=== PATIENT | female | born 2000 | race African-American/Black ===

== ENCOUNTER 2021-04-24 04:26 | Emergency (ER) | payer BC ==
[~2021-04-24] VITALS: Ht 167.6 cm; Wt 66.0 kg
[2021-04-24 04:59] LABS: BASOPHILS % 0.5 % (0.0-2.0); EOSINOPHILS % 1.1 % (0.0-5.0); HEMATOCRIT. 38.5 % (36.0-48.0); HEMOGLOBIN. 12.9 g/dL (12.0-16.0); LYMPHOCYTES % 35.4 % (20.0-50.0); MEAN CORPUSCULAR HEMOGLOBIN 28.5 pg (28.0-32.0); MEAN CORPUSCULAR VOLUME 84.7 fL (81.0-99.0); MEAN PLATELET VOLUME 8.8 fl (7.4-10.4); PLATELET 206 x1000/uL (130-400); RED BLOOD CELL COUNT 4.55 mill/uL (4.2-5.4); RED CELL DISTRIBUTION WIDTH 14.7 % (11.6-14.6)
[2021-04-24 05:03] LABS: CHLORIDE 110 mEq/L (98-107)
[2021-04-24 05:05] LABS: HCG SCREEN NEGATIVE
[2021-04-24 05:32] LABS: CLARITY URINE CLEAR (CLEAR); COLOR URINE YELLOW (YELLOW); KETONES URINE TRACE (NEGATIVE); LEUKOCYTE ESTERASE URINE TRACE (NEGATIVE); NITRITE URINE NEGATIVE (NEGATIVE); OCCULT BLOOD URINE 2+ (NEGATIVE); PROTEIN URINE NEGATIVE (NEGATIVE); SPECIFIC GRAVITY URINE 1.005 (1.005-1.030); UROBILINOGEN URINE 0.2 E.U./dL (0.2-1.0)
[2021-04-24] MEDS ORDERED: ACETAMINOPHEN 325MG TABLET PO ONE (06:30)
[2021-04-24 10:31] VITALS: BP 113/53
== END 2021-04-24 10:33 | disposition home or self-care (01) ==
LOC: ER 05:02
DX: N93.9 Abnormal uterine and vaginal bleeding, unspecified (principal); F12.10 Cannabis abuse, uncomplicated
CPT/HCPCS: 36415; 76856; 80053; 81003; 81025; 84703; 85025; 86850; 86900; 86901; 87070; 87430; 99285; Z7610; A4315